=== PATIENT | female | born 1980 | race Caucasian/White ===

== ENCOUNTER 2023-06-02 18:48 | Emergency (ER) | payer OTHER, SELFPAY ==
[2023-06-02 18:51] VITALS: BP 117/69; PULSE 105; RESP 16; TEMP 36.8; O2SAT 98; BMI 19.9
--- NOTE | 2023-06-02 19:56 | ED.GENADUL1 ---
Documented by User: Jasmin Zamora 06/02/23 19:59 HPI - General Adult General Chief complaint: Skin/Abscess/Foreign Body Stated complaint: Lump by Ear Time Seen by Provider: 06/02/23 19:35 Source: patient Mode of arrival: walk-in History of Present Illness HPI narrative: 43 year Old female presents with chief complaint of pain and swelling along the lower left hairline in the back of her neck. She states she felt a lymph node. Patient has an abrasion to this area no significant swelling or drainage. She has tenderness to palpation of this area. No acute abscess Related Data Home Medications Medication Instructions Recorded Confirmed No Known Home Medications 06/02/23 06/02/23 Previous Rx's Medication Instructions Recorded cephalexin 500 mg capsule 500 mg PO BID 10 days #20 caps 06/02/23 Allergies Allergy/AdvReac Type Severity Reaction Status Date / Time Penicillins Allergy Severe Verified 06/02/23 18:55 Review of Systems ROS Narrative All Systems are negative except as noted/marked. Exam Narrative Exam Narrative: Nurses note and vital signs reviewed and patient is not hypoxic. General: The patient appears well and in no apparent distress. Patient is resting comfortably on cart. Skin: Warm, dry, no pallor noted. smll abrasion, folliculitis noted to left posterior hair line, no acute abscess. Head: Normocephalic, atraumatic Eye: Normal conjunctiva, no drainage, EOMI. PERRL Ears, Nose, Mouth, and Throat: oral mucosa is moist. Nares patent. Mouth without vesicles. Ear canals patent. Tm's without Erythema Cardiovascular: Regular Rate and Rhythm Respiratory: Patient is in no distress, no accessory muscle use, lungs are clear to auscultation, no wheezing, rales or rhonchi Musculoskeletal: The patient has no evidence of calf tenderness, no pitting edema, symmetrical pulses noted bilaterally Neurological: A&O x4, normal speech Psychiatric: Cooperative Constitutional Vital Signs, click to edit/add: Last Vital Signs Temp 98.2 F 06/02/23 18:51 Pulse 105 H 06/02/23 18:51 Resp 16 06/02/23 18:51 BP 117/69 06/02/23 18:51 Pulse Ox 98 06/02/23 18:51 Course Vital Signs Vital signs: Vital Signs Temperature 98.2 F 06/02/23 18:51 Pulse Rate 105 H 06/02/23 18:51 Respiratory Rate 16 06/02/23 18:51 Blood Pressure 117/69 06/02/23 18:51 Pulse Oximetry 98 06/02/23 18:51 Temperature 98.2 F 06/02/23 18:51 Pulse Rate 105 H 06/02/23 18:51 Respiratory Rate 16 06/02/23 18:51 Blood Pressure 117/69 06/02/23 18:51 Pulse Oximetry 98 06/02/23 18:51 Medical Decision Making MDM Narrative Medical decision making narrative: Chief complaint of soreness to the back of her neck and consistent with possible lymph node. I do not appreciate a lymph node on examination. She has small abrasion and tenderness consistent with probable folliculitis. Patient told use localized antibiotic will be placed on Keflex. Patient agrees with plan of care medicated here with motrin. Patient may be discharged home Medical Records Medical records reviewed: Yes I reviewed the patient's medical records Discharge Plan Discharge Chief Complaint: Skin/Abscess/Foreign Body Clinical Impression: Folliculitis Patient Disposition: Home, Self-Care Time of Disposition Decision: 19:54 Condition: Good Prescriptions / Home Meds: New cephalexin 500 mg capsule 500 mg PO BID 10 Days Qty: 20 0RF No Action No Known Home Medications Instructions: Folliculitis (ED) Stand Alone Forms: Portal Instructions Referrals: Physician,Non-Staff, [Primary Care Provider] - 1 week Documented by User: Andreas Head MD 06/02/23 20:00 HPI - General Adult General Chief complaint: Skin/Abscess/Foreign Body Stated complaint: Lump by Ear Time Seen by Provider: 06/02/23 19:35 Related Data Home Medications Medication Instructions Recorded Confirmed No Known Home Medications 06/02/23 06/02/23 Previous Rx's Medication Instructions Recorded cephalexin 500 mg capsule 500 mg PO BID 10 days #20 caps 06/02/23 Allergies Allergy/AdvReac Type Severity Reaction Status Date / Time Penicillins Allergy Severe Verified 06/02/23 18:55 Exam Constitutional Vital Signs, click to edit/add: Last Vital Signs Temp 98.2 F 06/02/23 18:51 Pulse 105 H 06/02/23 18:51 Resp 16 06/02/23 18:51 BP 117/69 06/02/23 18:51 Pulse Ox 98 06/02/23 18:51 Course Vital Signs Vital signs: Vital Signs Temperature 98.2 F 06/02/23 18:51 Pulse Rate 105 H 06/02/23 18:51 Respiratory Rate 16 06/02/23 18:51 Blood Pressure 117/69 06/02/23 18:51 Pulse Oximetry 98 06/02/23 18:51 Temperature 98.2 F 06/02/23 18:51 Pulse Rate 105 H 06/02/23 18:51 Respiratory Rate 16 06/02/23 18:51 Blood Pressure 117/69 06/02/23 18:51 Pulse Oximetry 98 06/02/23 18:51 Medical Decision Making MDM Narrative Medical decision making narrative: Chief complaint of soreness to the back of her neck and consistent with possible lymph node. I do not appreciate a lymph node on examination. She has small abrasion and tenderness consistent with probable folliculitis. Patient told use localized antibiotic will be placed on Keflex. Patient agrees with plan of care medicated here with motrin. Patient may be discharged home I, Dr Head, have reviewed the above progress note and course of action in the ER; agree with the above. I have gone over history and physical, and discussed disposition and treatment plan with the patient. Discharge Plan Discharge Chief Complaint: Skin/Abscess/Foreign Body Clinical Impression: Folliculitis Patient Disposition: Home, Self-Care Time of Disposition Decision: 19:54 Condition: Good Prescriptions / Home Meds: New cephalexin 500 mg capsule 500 mg PO BID 10 Days Qty: 20 0RF No Action No Known Home Medications Instructions: Folliculitis (ED) Stand Alone Forms: Portal Instructions Referrals: Physician,Non-Staff, MD [Primary Care Provider] - 1 week
[2023-06-02] MEDS: CEPHALEXIN 500 MG CAPSULE PO (20:25)
[2023-06-02] MEDS: IBUPROFEN 400 MG TABLET 800 MG PO (20:25)
== END 2023-06-02 20:37 | disposition home or self-care (01) ==
PROVIDERS: Emergency Provider Internal Medicine; Family Provider Family Medicine
DX: L73.9 Follicular disorder, unspecified (principal)
CPT/HCPCS: 99283